=== PATIENT | male | born 1955 | race Caucasian/White ===

== ENCOUNTER 2016-10-19 14:04 | Emergency (ER) | payer OTHER, MEDICARE ==
[2016-10-19 15:58] LABS: RED BLOOD COUNT 5.19 M/UL (4.20-5.50); WHITE BLOOD COUNT 8.9 K/UL (4.5-11.0)
== END 2016-10-19 22:24 | disposition short-term general hospital (02) ==
LOC: ER1 14:04
PROVIDERS: Physician Assistant
DX: N17.9 Acute kidney failure, unspecified (principal); N20.1 Calculus of ureter; N39.0 Urinary tract infection, site not specified; E11.40 Type 2 diabetes mellitus with diabetic neuropathy, unspecified; F17.200 Nicotine dependence, unspecified, uncomplicated; Z90.49 Acquired absence of other specified parts of digestive tract; R11.2 Nausea with vomiting, unspecified
CPT/HCPCS: 36415; 76536; 80053; 81001; 85025; 87086; 96361; 96365; 96375; 96376; 99285; J0696; J1885; J2405; J7050

== ENCOUNTER → 2016-10-19 | Outpatient (CLI) | payer OTHER, MEDICARE | LOC: US 13:00 | DX: E04.1 Nontoxic single thyroid nodule (principal) | CPT/HCPCS: 76536 ==

== ENCOUNTER → 2020-09-02 | Outpatient (CLI) | payer MEDICARE ==
[~2020-09-02] MED LIST: ACTOS TAB 15MG15 MG PO; ADVAIR HFA 115/1 INH INH; ASPIR-TRIN325 MG PO; ASPIRIN81 MG PO; B COMPLEX1 EACH PO; COMBIVENT0.074 GM/I INH; CYANOCOBAL1000 MCG/1 INJ; ENDOCET 10-3251 EACH PO; GINGER ROOT550 MG PO; GLUCOPHAGE1000 MG PO; KEFLEX500 MG PO; LAMICTAL TAB 1100 MG PO; LIPITOR40 MG PO; LOPRESSOR 25 MG25 MG PO; MAGNESIUM250 M1 PO; MIRTAZAPINE45 MG PO; PROTONIX 40 MG40 M1 PO; RISPERDAL0.5 MG PO; TIROSINT50 MCG PO; TOFRANIL 50 MG50 MG GT; TRIBENZOR 40-11 EAC1 PO; ULTRAM50 MG PO; VITAMIN B12-FO1 EACH PO; VITAMIN D325 MC6 PO
[2020-09-02 09:58] LABS: HEMOGLOBIN 10.5 gm/dl (14.0-17.5)
== END ==
LOC: LAB 09:17
PROVIDERS: Physician Assistant Surgical
DX: D64.9 Anemia, unspecified (principal)
CPT/HCPCS: 36415; 85014; 85018

== ENCOUNTER → 2021-02-03 | Outpatient (CLI) | payer MEDICARE | LOC: EXRD 09:11 | DX: Z13.6 Encounter for screening for cardiovascular disorders (principal) | CPT/HCPCS: 76706 ==

== ENCOUNTER → 2021-02-16 | Outpatient (CLI) | payer MEDICARE | LOC: KOH-I 09:48 | DX: F17.210 Nicotine dependence, cigarettes, uncomplicated (principal) | CPT/HCPCS: 71271 ==

== ENCOUNTER → 2021-08-01 | Outpatient (CLI) | payer MEDICARE | LOC: KOH-I 09:57 | DX: M54.50 Low back pain, unspecified (principal); M47.816 Spondylosis without myelopathy or radiculopathy, lumbar region | CPT/HCPCS: 72100 ==